=== PATIENT | male | born 1960 | race African-American/Black ===

== ENCOUNTER 2019-09-03 18:44 | Inpatient (IN) | payer OTHER ==
[2019-09-03 19:31] VITALS: BMI 25.0
--- NOTE | 2019-09-04 00:24 | HP ---
CIWA Score Nausea/Vomitin (x 6) Muscle Tremors: 2 Anxiety: 3 Agitation: 3 Paroxysmal Sweats: 1-Minimal Palms Moist Orientation: 0-Oriented Tacttile Disturbances: 0-None Auditory Disturbances: 0-None Visual Disturbances: 0-None Headache: 3-Moderate CIWA-Ar Total Score: 15 - Admission Criteria OASAS Guidelines: Admission for Medically Managed Detox: Requires at least one of the followin. CIWA greater than 12 2. Seizures within the past 24 hours 3. Delirium tremens within the past 24 hours 4. Hallucinations within the past 24 hours 5. Acute intervention needed for co occurring medical disorder 6. Acute intervention needed for co occurring psychiatric disorder 7. Severe withdrawal that cannot be handled at a lower level of care (continued vomiting, continued diarrhea, abnormal vital signs) requiring intravenous medication and/or fluids 8. Admission ROS [facility] Chief Complaint: Seeking admission to detox from Alcohol Allergies/Adverse Reactions: Allergies Allergy/AdvReac Type Severity Reaction Status Date / Time No Known Allergies Allergy Verified 09/04/19 00:25 History of Present Illness: 59 years old male is seeking admission to detox. He has medical history of hypertension, migraines, sciatica nerve pain on prescription meds, GERD, asthma and BPH. He has psych history of schizophrenia. He denies suicidal ideation at this time. Patient is on prescribed Oxycodone- Acetaminophen 10-325mg tablet. - Ebola screening Have you traveled outside of the country in the last 21 days: No (N) Have you had contact with anyone from an Ebola affected area: No Do you have a fever: No - Review of Systems Constitutional: Changes in sleep EENT: reports: No Symptoms Reported Respiratory: reports: No Symptoms reported Cardiac: reports: No Symptoms Reported GI: reports: Poor Appetite, Poor Fluid Intake, Vomiting, Abdominal cramping : reports: No Symptoms Reported Musculoskeletal: reports: Back Pain, Joint Pain, Muscle Pain Integumentary: reports: Dryness, Flushing Neuro: reports: Tremors Endocrine: reports: No Symptoms Reported Hematology: reports: No Symptoms Reported Psychiatric: reports: Mood/Affect Appropiate, Orientated x3 Other Systems: Reviewed and Negative Patient History - Patient Medical History Hx Anemia: No Hx Asthma: Yes Hx Chronic Obstructive Pulmonary Disease (COPD): No Hx Cancer: No Hx Cardiac Disorders: No Hx Congestive Heart Failure: No Hx Hypertension: Yes Hx Hypercholesterolemia: No HX Cerebrovascular Accident: No Hx Seizures: No Hx Dementia: No Hx Diabetes: No Hx Gastrointestinal Disorders: Yes (GERD) Hx Liver Disease: No Hx Genitourinary Disorders: Yes (BPH) Hx Sexually Transmitted Disorders: No Hx Renal Disease (ESRD): No Hx Thyroid Disease: No Hx Human Immunodeficiency Virus (HIV): No (Negative 2019) Hx Hepatitis C: No Hx Depression: No Hx Suicide Attempt: No (Denies suicidal ideation at this time) Hx Bipolar Disorder: No Hx Schizophrenia: No Other Medical History: Sciatica, Migraine, - Patient Surgical History Past Surgical History: Yes Hx Neurologic Surgery: No Hx Cataract Extraction: No Hx Cardiac Surgery: No Hx Lung Surgery: No Hx Abdominal Surgery: No Hx Appendectomy: No Hx Cholecystectomy: No Hx Genitourinary Surgery: No Hx Orthopedic Surgery: Yes (Knee surgery 2012) Anesthesia Reaction: No - PPD History Previous Implant?: Yes (PPD POSITIVE) Documented Results: Positive w/o proof Implanted On Prior R Admission?: No PPD to be Administered?: No - Reproductive History Patient is a Female of Child Bearing Age (11 -55 yrs old): No (male) - Smoking Cessation Smoking history: Current every day smoker Have you smoked in the past 12 months: Yes Aproximately how many cigarettes per day: 40 Hx Chewing Tobacco Use: No Initiated information on smoking cessation: Yes 'Breaking Loose' booklet given: 09/04/19 - Substance & Tx. History Hx Alcohol Use: Yes Hx Substance Use: Yes Substance Use Type: Alcohol, Cocaine, Opiates Hx Substance Use Treatment: Yes - Substances abused Cocaine Substance route: Smoking Frequency: Daily Amount used: $100 Age of first use: 26 Date of last use: 09/03/19 Alcohol Substance route: Oral Frequency: Daily Amount used: A SHOT OF ANNIE Age of first use: 26 Date of last use: 09/03/19 Admission Physical Exam [facility] - Vital Signs Vital Signs: Vital Signs - 24 hr 09/03/19 09/03/19 19:24 21:10 Temperature 97.3 F L 97.3 F L Pulse Rate 83 83 Respiratory 18 18 Rate Blood Pressure 169/100 169/100 - Physical General Appearance: Yes: Moderate Distress, Tremorous, Irritable, Sweating, Anxious HEENTM: Yes: Within Normal Limits Respiratory: Yes: Lungs Clear, Normal Breath Sounds, No Respiratory Distress Neck: Yes: Supple Breast: Yes: Breast Exam Deferred Cardiology: Yes: Regular Rhythm, Regular Rate Abdominal: Yes: Normal Bowel Sounds Genitourinary: Yes: Within Normal Limits Back: Yes: Normal Inspection Musculoskeletal: Yes: Back pain, Muscle Pain Extremities: Yes: Tremors Neurological: Yes: Within Normal Limits Integumentary: Yes: Warm Lymphatic: Yes: Within Normal Limits - Diagnostic (1) Alcohol dependence with withdrawal, uncomplicated Current Visit: Yes Status: Acute (2) Nicotine dependence Current Visit: Yes Status: Chronic (3) Hypertension Current Visit: Yes Status: Chronic Qualifiers: Hypertension type: essential hypertension Qualified Code(s): I10 - Essential (primary) hypertension (4) Migraine Current Visit: Yes Status: Chronic (5) Sciatic nerve pain Current Visit: Yes Status: Chronic Qualifiers: Laterality: unspecified laterality Qualified Code(s): M54.30 - Sciatica, unspecified side (6) GERD (gastroesophageal reflux disease) Current Visit: Yes Status: Chronic (7) Asthma Current Visit: Yes Status: Chronic Qualifiers: Asthma persistence: unspecified (8) BPH (benign prostatic hyperplasia) Current Visit: Yes Status: Chronic Qualifiers: Lower urinary tract symptom detail: unspecified Cleared for Admission S - Detox or Rehab [facility] Level of Care: Medically Managed Detox Regimen/Protocol: Valium Claeared for Rehab Admission: No Breathalyzer - Breathalyzer Breathalyzer: 0 Urine Drug Screen - Test Device Lot number: [id number] Expiration date: 04/29/21 - Control Is test valid?: Yes - Results Drug screen NEGATIVE: Yes Urine drug screen results: ABIMAEL-Cocaine, MET-Methamphetamine, MOP-Opiates, OXY- Oxycodone, BZO-Benzodiazepines Inpatient Rehab Admission - Rehab Decision to Admit Inpatient rehab admission?: No
[2019-09-04] MEDS ORDERED: MAGNESIUM HYDROX 2400MG/30ML ORAL SUSPENSION 30 ML CUP PO PRN (00:54)
[2019-09-04] MEDS ORDERED: BISMUTH SUBSALICYLATE 524 MG/30 ML UD PO PRN (00:54)
[2019-09-04] MEDS ORDERED: NICOTINE POLACRILEX 2 MG GUM BUC PRN (00:54)
[2019-09-04] MEDS ORDERED: MENTHOL/PHENOL 1 EACH UD MM PRN (00:54)
[2019-09-04] MEDS ORDERED: MELATONIN 5 MG TABLETS PO PRN (00:54)
[2019-09-04] MEDS ORDERED: MAGNESIUM CITRATE 300 ML BOTTLE PO PRN (00:54)
[2019-09-04] MEDS ORDERED: hydrOXYzine PAMOATE 25 MG CAPSULE (FP) PO PRN (00:54)
[2019-09-04] MEDS ORDERED: IBUPROFEN 400 MG TABLET (FP) PO PRN (00:54)
[2019-09-04] MEDS ORDERED: ACETAMINOPHEN 325 MG TABLET (FP) PO PRN ×2 (00:54)
[2019-09-04] MEDS ORDERED: ALBUTEROL SO4 8 GM HFA INHALER IH PRN (00:57)
[2019-09-04] MEDS ORDERED: PANTOPRAZOLE 40 MG TABLET (FP) PO ONE (02:28)
[2019-09-04] MEDS: diazePAM 5 MG TABLET PO PRN (02:46)
[2019-09-04] MEDS: diazePAM 5 MG TABLET PO SCH ×3 (06:03→22:19)
[2019-09-04] MEDS: TAMSULOSIN HCL 0.4 MG CAP PO SCH (09:24)
[2019-09-04] MEDS: NICOTINE 21 MG/24 HOURS TOPICAL PATCH TD SCH (10:24)
[2019-09-04] MEDS: amLODIPine BESYLATE 5 MG TABLET (FP) PO SCH (10:24)
[2019-09-04] MEDS: predniSONE 20 MG TABLET (UD) PO SCH (10:24)
[2019-09-04] MEDS: PANTOPRAZOLE 20 MG TABLET (FP) PO SCH ×2 (10:25→22:18)
[2019-09-04] MEDS: PRENATAL VITAMINS W/ FOLIC ACID TABLET (FP) PO SCH (10:26)
--- NOTE | 2019-09-04 11:29 | PN ---
S CIWA - CIWA Score Nausea/Vomitin-Mild Nausea/No Vomiting Muscle Tremors: 2 Anxiety: 3 Agitation: 0-Normal Activity Paroxysmal Sweats: 4-Forehead w/Sweat Beads Orientation: 0-Oriented Tacttile Disturbances: 1-Very Mild Itch/Numbness Auditory Disturbances: 0-None Visual Disturbances: 1-Very Mild Sensitivity Headache: 0-None Present CIWA-Ar Total Score: 12 [facility] Progress Note (SOAP) Subjective: Patient is a 59 nyo male with is here for alcohol detox c/o of increase lacrimation, sweats through the night, chills, body aches. Reports hx of chronic back and neuropathic pain seen by pain management in the community and is treated with oxycodone. Objective: 09/04/19 14:06 Vital Signs Temperature 98.6 F 09/04/19 13:45 Pulse Rate 67 09/04/19 13:45 Respiratory Rate 18 09/04/19 13:45 Blood Pressure 149/84 09/04/19 13:45 O2 Sat by Pulse Oximetry (%) Labs pending Assessment: 09/04/19 14:07 Patient AOx3 no acute distress, + diaphoresis no adventitious breath sounds full ROM no gait disturbance withdrawal sx lumbago Plan: gabapentin 300 mg tid for back pain, patient to follow up with primary care provider upon discharge continue detox continue to monitor
[2019-09-04] MEDS: METHOCARBAMOL 500 MG TABLET PO PRN ×2 (13:10→19:30)
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
[2019-09-04] MEDS: MAG HYDROX/AL HYDROX/SIMETH 30 ML UNIT-DOSE CUP PO PRN (15:06)
[2019-09-04] MEDS: GABAPENTIN 300 MG CAPSULE (FP) PO SCH ×2 (15:06→22:19)
[2019-09-04] MEDS ORDERED: cloNIDine HCL 0.1 MG TABLET PO ONE (18:36)
[2019-09-04] MEDS ORDERED: MAG HYDROX/AL HYDROX/SIMETH -MYLANTA- ORAL SUSPENSION PO ONE (19:13)
[2019-09-04] MEDS: THIAMINE HCL 100 MG TABLET (FP) PO SCH (22:20)
[2019-09-05] MEDS: GABAPENTIN 300 MG CAPSULE (FP) PO SCH ×3 (07:04→22:02)
[2019-09-05] MEDS: diazePAM 5 MG TABLET PO SCH ×2 (07:04→17:53)
[2019-09-05] MEDS: TAMSULOSIN HCL 0.4 MG CAP PO SCH (09:30)
[2019-09-05 10:33] LABS: HEMATOCRIT 45.8 % (35.4-49); HEMOGLOBIN 15.3 GM/dL (11.7-16.9); MCHC 33.3 g/dl (32.0-35.9); MEAN CELL VOLUME 84.2 fl (80-96); MEAN PLT VOLUME 8.6 fl (7.5-11.1); PLATELET COUNT 284 K/MM3 (134-434); RBC 5.44 M/mm3 (4.00-5.60); RDW 12.8 % (11.9-15.9); WHITE BLOOD COUNT 7.3 K/mm3 (4.0-10.0)
[2019-09-05] MEDS: predniSONE 20 MG TABLET (UD) PO SCH (10:33)
[2019-09-05] MEDS: amLODIPine BESYLATE 5 MG TABLET (FP) PO SCH (10:34)
[2019-09-05] MEDS: PANTOPRAZOLE 20 MG TABLET (FP) PO SCH ×2 (10:34→22:02)
[2019-09-05] MEDS: NICOTINE 21 MG/24 HOURS TOPICAL PATCH TD SCH (10:34)
[2019-09-05] MEDS: PRENATAL VITAMINS W/ FOLIC ACID TABLET (FP) PO SCH (10:35)
[2019-09-05 10:55] LABS: BILIRUBIN,TOTAL 0.4 mg/dL (0.2-1); BLOOD UREA NITROGEN 8.3 mg/dL (7-18); CALCIUM 9.5 mg/dL (8.5-10.1); CREATININE 0.7 mg/dL (0.55-1.3); POTASSIUM 3.1 mmol/L (3.5-5.1); TOT PROT 7.5 g/dl (6.4-8.2)
--- NOTE | 2019-09-05 11:56 | PN ---
S CIWA - CIWA Score Nausea/Vomitin-No Nausea/No Vomiting Muscle Tremors: None Anxiety: 2 Agitation: 0-Normal Activity Paroxysmal Sweats: 2 Orientation: 0-Oriented Tacttile Disturbances: 0-None Auditory Disturbances: 0-None Visual Disturbances: 0-None Headache: 2-Mild CIWA-Ar Total Score: 6 [facility] Progress Note (SOAP) Subjective: c/o headache, sweats, and anxiety. Objective: 09/05/19 11:52 Vital Signs 09/05/19 09/05/19 06:52 09:17 Temperature 97.3 F L 98.5 F Pulse Rate 71 85 Respiratory 18 18 Rate Blood Pressure 141/81 120/75 Laboratory Last Values WBC 7.3 K/mm3 (4.0-10.0) 09/05/19 07:40 RBC 5.44 M/mm3 (4.00-5.60) 09/05/19 07:40 Hgb 15.3 GM/dL (11.7-16.9) 09/05/19 07:40 Hct 45.8 % (35.4-49) 09/05/19 07:40 MCV 84.2 fl (80-96) 09/05/19 07:40 MCH 28.0 pg (25.7-33.7) 09/05/19 07:40 MCHC 33.3 g/dl (32.0-35.9) 09/05/19 07:40 RDW 12.8 % (11.9-15.9) 09/05/19 07:40 Plt Count 284 K/MM3 (134-434) 09/05/19 07:40 MPV 8.6 fl (7.5-11.1) 09/05/19 07:40 Sodium 139 mmol/L (136-145) 09/05/19 07:40 Potassium 3.1 mmol/L (3.5-5.1) L 09/05/19 07:40 Chloride 99 mmol/L (98-107) 09/05/19 07:40 Carbon Dioxide 32 mmol/L (21-32) 09/05/19 07:40 Anion Gap 8 MMOL/L (8-16) 09/05/19 07:40 BUN 8.3 mg/dL (7-18) 09/05/19 07:40 Creatinine 0.7 mg/dL (0.55-1.3) 09/05/19 07:40 Est GFR (CKD-EPI)AfAm 120.56 09/05/19 07:40 Est GFR (CKD-EPI)NonAf 104.02 09/05/19 07:40 Random Glucose 95 mg/dL (74-106) 09/05/19 07:40 Calcium 9.5 mg/dL (8.5-10.1) 09/05/19 07:40 Total Bilirubin 0.4 mg/dL (0.2-1) 09/05/19 07:40 AST 31 U/L (15-37) 09/05/19 07:40 ALT 48 U/L (13-61) 09/05/19 07:40 Alkaline Phosphatase 107 U/L (45-117) 09/05/19 07:40 Total Protein 7.5 g/dl (6.4-8.2) 09/05/19 07:40 Albumin 4.0 g/dl (3.4-5.0) 09/05/19 07:40 RPR Titer Nonreactive (NONREACTIVE) 09/05/19 07:40 Labs noted with low k+ level of 3.1. Assessment: 09/05/19 11:53 AOX3, in no acute respiratory distress. Full ROM, ambulating in the unit. Withdrawal symptoms. Hypokalemia. For d/c tomorrow. Plan: Continue detox. Potassium chloride 40meq po x2 doses 4hrs apart. Repeat k+ level in AM at 6am. D/C home at 8am when k+ level is normal.
[2019-09-05] MEDS ORDERED: POTASSIUM CHLORIDE TABS 20 MEQ TABLET.ER (FP) PO ONE ×2 (11:57→17:00)
[2019-09-05] MEDS: METHOCARBAMOL 500 MG TABLET PO PRN ×2 (16:50→23:41)
[2019-09-05] MEDS: MAG HYDROX/AL HYDROX/SIMETH 30 ML UNIT-DOSE CUP PO PRN (17:55)
[2019-09-05] MEDS: THIAMINE HCL 100 MG TABLET (FP) PO SCH (22:02)
[2019-09-05] MEDS: diazePAM 5 MG TABLET PO PRN (22:02)
[2019-09-06] MEDS: GABAPENTIN 300 MG CAPSULE (FP) PO SCH (05:39)
[2019-09-06] MEDS ORDERED: diazePAM 5 MG TABLET PO ONE (06:00)
[2019-09-06 09:06] VITALS: BP 150/97; PULSE 72; TEMP 98.5
[2019-09-06] MEDS: PRENATAL VITAMINS W/ FOLIC ACID TABLET (FP) PO SCH (10:00)
[2019-09-06] MEDS: TAMSULOSIN HCL 0.4 MG CAP PO SCH (10:00)
[2019-09-06] MEDS: predniSONE 20 MG TABLET (UD) PO SCH (10:01)
[2019-09-06] MEDS: PANTOPRAZOLE 20 MG TABLET (FP) PO SCH (10:01)
[2019-09-06] MEDS: amLODIPine BESYLATE 5 MG TABLET (FP) PO SCH (10:02)
--- NOTE | 2019-09-06 10:38 | DS ---
[facility] Detox Discharge Summary Admission Date: 09/04/19 Discharge Date: 09/06/19 - History Present History: Alcohol Dependence Additional Comments: 59 years old male admitted on 09/04/19 for alcohol withdrawal sx management treated with valium detox regimen patient tolerated well alert oriented x 3 respiratory clear lung bilaterally on auscultation extremities full rang of motion skin warm and dry Pertinent Past History: patient agrees returning to primary care provider at [address] for medical mental behavior psychosocial therapies - Physical Exam Results Vital Signs: Vital Signs Temperature 98.5 F 09/06/19 09:05 Pulse Rate 72 09/06/19 09:05 Respiratory Rate 18 09/06/19 09:05 Blood Pressure 150/97 09/06/19 09:05 O2 Sat by Pulse Oximetry (%) Pertinent Admission Physical Exam Findings: alcohol withdrawal sx Laboratory Last Values WBC 7.3 K/mm3 (4.0-10.0) 09/05/19 07:40 RBC 5.44 M/mm3 (4.00-5.60) 09/05/19 07:40 Hgb 15.3 GM/dL (11.7-16.9) 09/05/19 07:40 Hct 45.8 % (35.4-49) 09/05/19 07:40 MCV 84.2 fl (80-96) 09/05/19 07:40 MCH 28.0 pg (25.7-33.7) 09/05/19 07:40 MCHC 33.3 g/dl (32.0-35.9) 09/05/19 07:40 RDW 12.8 % (11.9-15.9) 09/05/19 07:40 Plt Count 284 K/MM3 (134-434) 09/05/19 07:40 MPV 8.6 fl (7.5-11.1) 09/05/19 07:40 Sodium 139 mmol/L (136-145) 09/05/19 07:40 Potassium 4.1 mmol/L (3.5-5.1) 09/06/19 08:00 Chloride 99 mmol/L (98-107) 09/05/19 07:40 Carbon Dioxide 32 mmol/L (21-32) 09/05/19 07:40 Anion Gap 8 MMOL/L (8-16) 09/05/19 07:40 BUN 8.3 mg/dL (7-18) 09/05/19 07:40 Creatinine 0.7 mg/dL (0.55-1.3) 09/05/19 07:40 Est GFR (CKD-EPI)AfAm 120.56 09/05/19 07:40 Est GFR (CKD-EPI)NonAf 104.02 09/05/19 07:40 Random Glucose 95 mg/dL (74-106) 09/05/19 07:40 Calcium 9.5 mg/dL (8.5-10.1) 09/05/19 07:40 Total Bilirubin 0.4 mg/dL (0.2-1) 09/05/19 07:40 AST 31 U/L (15-37) 09/05/19 07:40 ALT 48 U/L (13-61) 09/05/19 07:40 Alkaline Phosphatase 107 U/L (45-117) 09/05/19 07:40 Total Protein 7.5 g/dl (6.4-8.2) 09/05/19 07:40 Albumin 4.0 g/dl (3.4-5.0) 09/05/19 07:40 RPR Titer Nonreactive (NONREACTIVE) 09/05/19 07:40 lab noted K+ within acceptable range - Treatment Hospital Course: Detox Protocol Followed, Detoxed Safely, Responded well, Discharged Condition Good, Rehab Referral Accepted Patient has Accepted a Rehab Referral to: [facility] - Medication Discharge Medications: Ambulatory Orders Albuterol Sulfate Inhaler - [Ventolin HFA Inhaler -] 2 puff QID PRN 09/03/19 Amlodipine Besylate [Norvasc -] 5 mg PO DAILY 09/03/19 Green Tea [place] Extract 2 tab PO DAILY 09/03/19 Milk Thistle/Nac/Dandel/[place] [Liver Complex Tablet] 2 each PO BID 09/03/19 Oxycodone HCl/Acetaminophen [Oxycodone-Acetaminophen 10-325] 1 each PO TID PRN 09/03/19 Ranitidine HCl 150 mg PO BID 09/03/19 Tamsulosin HCl 0.4 mg PO DAILY 09/03/19 predniSONE [Deltasone -] 40 mg PO DAILY 09/03/19 - Diagnosis (1) Alcohol dependence with withdrawal, uncomplicated Current Visit: Yes Status: Acute (2) Asthma Current Visit: Yes Status: Chronic Qualifiers: Asthma severity: mild Asthma persistence: intermittent Asthma complication type: with status asthmaticus Qualified Code(s): J45.22 - Mild intermittent asthma with status asthmaticus (3) BPH (benign prostatic hyperplasia) Current Visit: Yes Status: Chronic Qualifiers: Lower urinary tract symptom detail: unspecified (4) GERD (gastroesophageal reflux disease) Current Visit: Yes Status: Chronic Qualifiers: Esophagitis presence: without esophagitis Qualified Code(s): K21.9 - Gastro -esophageal reflux disease without esophagitis (5) Hypertension Current Visit: Yes Status: Chronic Qualifiers: Hypertension type: essential hypertension Qualified Code(s): I10 - Essential (primary) hypertension (6) Nicotine dependence Current Visit: Yes Status: Acute Qualifiers: Nicotine product type: cigarettes Substance use status: in withdrawal Qualified Code(s): F17.213 - Nicotine dependence, cigarettes, with withdrawal - AMA Did Patient Leave Against Medical Advice: No CIWA Score - CIWA Score Nausea/Vomitin-No Nausea/No Vomiting Muscle Tremors: None Anxiety: 1-Mildly Anxious Agitation: 0-Normal Activity Paroxysmal Sweats: 1-Minimal Palms Moist Orientation: 0-Oriented Tacttile Disturbances: 0-None Auditory Disturbances: 0-None Visual Disturbances: 0-None Headache: 1-Very Mild CIWA-Ar Total Score: 3
[2019-09-06] MEDS: NICOTINE 21 MG/24 HOURS TOPICAL PATCH TD SCH (11:04)
== END 2019-09-06 11:13 | disposition home or self-care (01) | DRG 774 ==
LOC: YASAS 18:44 → Y3N 09-04 01:12
PROVIDERS: ADMIT Allergy & Immunology; ATTEND Allergy & Immunology
PROC: HZ2ZZZZ Detoxification Services for Substance Abuse Treatment (ICD-10-PCS; principal; 2019-09-04)
DX: F10.230 Alcohol dependence with withdrawal, uncomplicated (principal); F14.20 Cocaine dependence, uncomplicated; F17.210 Nicotine dependence, cigarettes, uncomplicated; F20.9 Schizophrenia, unspecified; E87.6 Hypokalemia; I10 Essential (primary) hypertension; J45.22 Mild intermittent asthma with status asthmaticus; G43.909 Migraine, unspecified, not intractable, without status migrainosus; M54.30 Sciatica, unspecified side; K21.9 Gastro-esophageal reflux disease without esophagitis; N40.0 Benign prostatic hyperplasia without lower urinary tract symptoms; R76.11 Nonspecific reaction to tuberculin skin test without active tuberculosis; Z86.69 Personal history of other diseases of the nervous system and sense organs; Z91.19 Patient's noncompliance with other medical treatment and regimen
CPT/HCPCS: 36415; 71046-TC-FY; 80053; 84132; 85027; 86593; J0735